=== PATIENT | male | born 1955 | race Two or more races ===

== ENCOUNTER 2020-04-15 06:43 | Day surgery (SDC) | payer MEDICAID, MEDICARE ==
--- NOTE | 2019-11-07 16:45 | Opthalmology H&P ---
Ophthalmology H&P H&P Chief Complaint: decreased vision in right eye HPI Vision Affects Ability to: read, manage personal affairs Past Ocular History: retinal problems - Vitreous hemorrhage OU/ Macular edema OU/ Proliferative Diabetic Retinopathy OU HPI Narrative Blurry vision Exam Visual Acuity: OD Hand motion OS Counting fingers Tension: OD 17 OS 17 Eye Exam: normal OU: external exam, palpebral fissure-width, marginal reflex distance, levator function, corneas, anterior chambers; findings: lens - NS cataracts OU, fundus exam - Vitreous hemorrhage OU/ Macular edema OU/ Proliferative Diabetic Retinopathy OU Assessment/Plan Treatment Plan: cataract extraction w/ lens implant Goals of Treatment: improvement of vision, enhance quality of life Attestation Attestation The risks and benefits of the surgery as well as alternative procedures were explained to the patient in detail. Jorge Peter MD Nov 07, 2019 16:45
--- NOTE | 2019-11-07 16:48 | Pre-Procedure Note/Attestation ---
Pre-Procedure Note/Attestation Complete Prior to Procedure Planned Procedure: right Procedure Narrative: Cataract extraction with IOL implant right eye Indications for Procedure Pre-Operative Diagnosis: Nuclear sclerotic/posterior subcapsular cataract right eye Attestation I attest that I discussed the nature of the procedure; its benefits; risks and complications; and alternatives (and the risks and benefits of such alternatives ), prior to the procedure, with the patient (or the patient's legal associate financial representative). I attest that, if there was a reasonable possibility of needing a blood transfusion, the patient (or the patient's legal associate financial representative) was given the [facility] standardized written summary, pursuant to the Santosh Nancie Blood Safety Act ([place] Health and Safety Code # 1645, as amended). I attest that I re-evaluated the patient just prior to the surgery and that there has been no change in the patient's H&P, except as documented below: Jorge Peter MD Nov 07, 2019 16:48
--- NOTE | 2020-04-14 13:07 | Opthalmology H&P ---
Ophthalmology H&P H&P Chief Complaint: decreased vision in right eye HPI Vision Affects Ability to: read, manage personal affairs Past Ocular History: retinal problems - pdr/me OU, Vitreous Hemorrhage OU HPI Narrative Blurry vision Exam Visual Acuity: OD: HM OS: 20/160 Tension: OD 21 OS 20 Eye Exam: normal OU: external exam, palpebral fissure-width, marginal reflex distance, levator function, corneas, anterior chambers; findings: lens - NS Cataracts OU, fundus exam - Vitreous Hemorrhage OU/ PDR OU/ME OU/ Assessment/Plan Treatment Plan: cataract extraction w/ lens implant Goals of Treatment: improvement of vision, enhance quality of life Attestation Attestation The risks and benefits of the surgery as well as alternative procedures were explained to the patient in detail. Jorge Peter MD Apr 14, 2020 13:07
--- NOTE | 2020-04-14 13:08 | Pre-Procedure Note/Attestation ---
Pre-Procedure Note/Attestation Complete Prior to Procedure Planned Procedure: right Procedure Narrative: Cataract extraction with IOL implant right eye Indications for Procedure Pre-Operative Diagnosis: Nuclear sclerotic/posterior subcapsular cataract right eye Attestation I attest that I discussed the nature of the procedure; its benefits; risks and complications; and alternatives (and the risks and benefits of such alternatives ), prior to the procedure, with the patient (or the patient's legal brewery representative). I attest that, if there was a reasonable possibility of needing a blood transfusion, the patient (or the patient's legal brewery representative) was given the [facility] standardized written summary, pursuant to the Santosh Nancie Blood Safety Act ([place] Health and Safety Code # 1645, as amended). I attest that I re-evaluated the patient just prior to the surgery and that there has been no change in the patient's H&P, except as documented below: Jorge Peter MD Apr 14, 2020 13:08
[2020-04-15] VITALS (7 sets, daily range): BP systolic 147–168; BP diastolic 73–88
[~2020-04-15] VITALS: Ht 182.9 cm; Wt 99.8 kg
[~2020-04-15 06:43] MED LIST: Akten 3.5% 1ml Btl RIGHT EYE ONE; Cyclopentolate 1% Opth Sol 2ml RIGHT EYE SCH; Diclofenac Sod 0.1% Op Soln RIGHT EYE SCH; Phenylephrine 10% Opth Soln 5ml RIGHT EYE SCH; Proparacaine 0.5% Opth Soln 15ml RIGHT EYE ONE; Tetracaine 0.5% Opth 4ml Soln RIGHT EYE ONE; Tobramycin Op Soln 0.3% 5ml RIGHT EYE SCH; Tropicamide 1% Opth 15ml Soln RIGHT EYE SCH
[2020-04-15] MEDS ORDERED: Maxitrol Opth Oint 3.5gm ONE (07:00)
[2020-04-15] MEDS ORDERED: prednisoLONE acetate 1% Opth Susp 1ml ONE (07:00)
[2020-04-15] MEDS ORDERED: Pilocarpine 1% Opth 15ml Soln ONE (07:00)
[2020-04-15] MEDS ORDERED: Tetracaine 0.5% Opth 4ml Soln RIGHT EYE ONE (07:00)
[2020-04-15] MEDS ORDERED: Proparacaine 0.5% Opth Soln 15ml RIGHT EYE ONE (07:00)
[2020-04-15] MEDS ORDERED: Akten 3.5% 1ml Btl RIGHT EYE ONE (07:00)
[2020-04-15] MEDS: Tropicamide 1% Opth 15ml Soln RIGHT EYE SCH ×3 (07:46→08:14)
[2020-04-15] MEDS: Phenylephrine 10% Opth Soln 5ml RIGHT EYE SCH ×3 (07:46→08:15)
[2020-04-15] MEDS: Cyclopentolate 1% Opth Sol 2ml RIGHT EYE SCH ×3 (07:46→08:15)
[2020-04-15] MEDS: Tobramycin Op Soln 0.3% 5ml RIGHT EYE SCH ×3 (07:47→08:15)
[2020-04-15] MEDS: Diclofenac Sod 0.1% Op Soln RIGHT EYE SCH ×3 (07:47→08:15)
[2020-04-15] MEDS ORDERED: CLOPIDOGREL75 MG ORAL (08:34)
[2020-04-15] MEDS ORDERED: AMLODIPINE BESY10 MG ORAL (08:34)
[2020-04-15] MEDS ORDERED: CARVEDILOL3.125 MG ORAL (08:35)
[2020-04-15] MEDS ORDERED: ASPIR 8181 MG ORAL (08:36)
[2020-04-15] MEDS ORDERED: CLONIDINE HCL0.1 MG PO (08:42)
[2020-04-15] MEDS ORDERED: LANTUS SOL100 UNIT/1 SUBQ (09:06)
[2020-04-15] MEDS ORDERED: Sodium Hyaluronate 10 mg/ml 0.85ml ONE (09:51)
[2020-04-15] MEDS ORDERED: BSS 500ml btl ONE (09:51)
[2020-04-15] MEDS ORDERED: EPINEPHrine 1mg/1ml Amp ONE (09:51)
[2020-04-15] MEDS ORDERED: BSS 15ml BTL ONE (09:51)
[2020-04-15] MEDS ORDERED: Povidone-Iodine 5% opth solution ONE (09:51)
[2020-04-15] MEDS ORDERED: acetaZOLAMIDE 500mg Inj ONE (09:52)
[2020-04-15] MEDS ORDERED: fentaNYL 100 mcg/2 mL IV ONE (09:59)
[2020-04-15] MEDS ORDERED: LR 1000ml ONE (10:00)
[2020-04-15] MEDS ORDERED: Sterile Water Irrig 1000ml IRRIG ONE (10:00)
[2020-04-15] MEDS ORDERED: NS Irrig 1000ml ONE (10:00)
[2020-04-15] MEDS ORDERED: Midazolam 2mg/2ml Inj ONE (10:00)
--- NOTE | 2020-04-15 10:53 | Immediate Post-Op Evaluation ---
Immediate Post-Op Evalulation Immediate Post-Op Evalulation Procedure: right eye cataract extraction with IOL Date of Evaluation: Apr 15, 2020 Time of Evaluation: 10:50 IV Fluids: 500 Blood Pressure Systolic: 138 Blood Pressure Diastolic: 50 Pulse Rate: 52 Respiratory Rate: 14 O2 Sat by Pulse Oximetry: 100 Temperature (Fahrenheit): 97.7 Nausea: No Vomiting: No Complications none Patient Status: awake, reacts, patent Hydration Status: adequate Drug: none Ijeoma Pérez CRNA Apr 15, 2020 10:53
--- NOTE | 2020-04-15 10:55 | Anethesia Preoperative Eval ---
Anesthesia Pre-op PMH/ROS General Date of Evaluation: Apr 15, 2020 Time of Evaluation: 10:00 Anesthesiologist: silva ASA Score: ASA 3 Mallampati Score Class I : Soft palate, uvula, fauces, pillars visible Class II: Soft palate, uvula, fauces visible Class III: Soft palate, base of uvula visible Class IV: Only hard plate visible Mallampati Classification: Class II Surgeon: vonda Diagnosis: cataract Surgical Procedure: cataract extractio with IOL Anesthesia History: none Family History: no anesthesia problems Allergies: Coded Allergies: No Known Allergies (Unverified , 11/07/19) Medications: see eMAR Patient NPO?: Yes NPO Date: Apr 15, 2020 NPO Time: 00:01 Past Medical History Cardiovascular: Reports: HTN, CAD Pulmonary: Denies: asthma, COPD, LUDA, other Gastrointestinal/Genitourinary: Denies: GERD, CRI, ESRD, other Neurologic/Psychiatric: Denies: dementia, CVA, depression/anxiety, TIA, other Endocrine: Reports: DM; Denies: hypothyroidism, steroids, other HEENT: Reports: cataract (R); Denies: cataract (L), glaucoma, PILOT STATION (L), PILOT STATION (R), other Hematology/Immune: Denies: anemia, DVT, bleeding disorder, other Musculoskeletal/Integumentary: Denies: OA, RA, DJD, DDD, edema, other PSxH Narrative: none Anesthesia Pre-op Phys. Exam Physician Exam Last Vital Signs Date Time Temp Pulse Resp B/P (MAP) Pulse Ox O2 Delivery O2 Flow Rate FiO2 04/15/20 08:11 97.3 50 18 162/77 97 Room Air Constitutional: NAD Neurologic: CN 2-12 intact Cardiovascular: RRR Respiratory: CTA Gastrointestinal: S/NT/ND Airway Exam Mallampati Classification 2 Mallampati Score: Class II MO: full ROM: full Dentures: no upper, no lower Anesthesia Pre-op A/P Labs Chemistry Test 04/15/20 08:25 POC Whole Blood Glucose 136 MG/DL (74-106) H Studies Pre-op Studies: EKG - sr Risk Assessment & Plan Assessment: covid neg Plan: mac Status Change Before Surgery: No Pre-Antibiotics Drug: none Ijeoma Pérez CRNA Apr 15, 2020 10:55
--- NOTE | 2020-04-15 11:04 | 48 Hour Post Anesthesia Eval ---
Post Anesthesia Evaluation Procedure: right eye cataract extraction with IOL Date of Evaluation: Apr 15, 2020 Time of Evaluation: 11:03 Blood Pressure Systolic: 151 0: 79 Pulse Rate: 50 Respiratory Rate: 14 O2 Sat by Pulse Oximetry: 98 Airway: patent Nausea: No Vomiting: No Hydration Status: adequate Cardiopulmonary Status: stable Mental Status/LOC: patient returned to baseline Post-Anesthesia Complications: none Follow-up care needed: N/A Ijeoma Pérez CRNA Apr 15, 2020 11:03
--- NOTE | 2020-04-18 11:05 | Brief Operative Note ---
Immediate Post Operative Note Operative Note Chief Complaint: Blurry vision Pre-op Diagnosis: Nuclear sclerotic/posterior subcapsular cataract right eye Procedure: Cataract extraction with IOL implant right eye Post-op Diagnosis: Pseudo OD Findings: consistent w/pre-op dx studies Surgeon: Jorge Peter MD Anesthesiologist: Ijeoma Pérez CRNA Anesthesia: MAC Specimen: none Complications: none Condition: stable Fluids: LR Estimated Blood Loss: none Drains: none Implant(s) used?: Yes - IOL-OD Jorge Peter MD Apr 18, 2020 11:05
--- NOTE | 2020-04-18 11:08 | Operative Note - PDOC ---
Operative Note Operative Note Date of Operation/Procedure: Apr 15, 2020 Chief Complaint: Blurry vision Pre-op Diagnosis: Nuclear sclerotic/posterior subcapsular cataract right eye Procedure: Cataract extraction with IOL implant right eye Post-op Diagnosis: Pseudo OD Operative Findings: consistent w/pre-op dx studies Surgeon: Jorge Peter MD Anesthesiologist: Ijeoma Pérez CRNA Anesthesia: MAC Specimen: none Complications: none Condition: stable Fluids: LR Estimated Blood Loss: none Drains: none Implant(s) used?: Yes - IOL-OD Indications for Procedure Nuclear sclerotic/ posterior subcapsular cataract right eye Description of Procedure This patient has been complaining visually significant cataract in the right eye with the best corrected visual acuity of hand motion. The patient complains of difficulties with glare in performing activities of daily living and wants to manage personal affairs with comfort and accuracy and see well enough to move with safety at home and outdoors. The risks, benefits and alternatives of the procedure were discussed with the patient in the office prior to scheduling surgery. All questions from the patient were answered after the surgical procedure was explained in detail. The risks of the procedure as explained to the patient include, but are not limited to, pain, infection, bleeding, loss of vision, retinal detachment, need for further surgery, loss of lens nucleus, double vision, etc. Alternative procedures were discussed which include, to do nothing or seek a second opinion. Informed consent for this procedure was obtained from the patient. The patient was referred to a primary care physician for a cardiopulmonary clearance prior to surgery, after proper evaluation was done patient was properly scheduled for outpatient surgery. The patient was brought to the operating room where the anesthesiologist established I.V. lines and cardiac monitoring leads. Mild intravenous sedation was administered. The patient was then prepared with a 5% solution of povidone -iodine to the conjunctival fornix and lashes, and a 5% solution of povidone- iodine to the lids and periorbital skin. The patient was then draped in the usual sterile fashion. A lid speculum was then placed in the operative eye. A keratome blade was then used to create a biplanar incision into the anterior chamber. Viscoelastics was then instilled into the anterior chamber. A curvilinear capsulorrhexis was then fashioned with an utrata forceps. A BSS was used with G-27 cannula was used to hydrodissect and hydrodelineate the lens nucleus. Paracentesis incision was made at 9 o'clock with sharp blade. The phacoemulsification unit, after being properly adjusted and tested, was then used to emulsify the nucleus. Residual cortical material was aspirated with the irrigation and aspiration unit. Healon was then instilled into the anterior chamber. The corneal wound was then enlarged to the size of the optic with the diann keratome blade. The intraocular lens was then inspected for right power and size and thought to be satisfactory. Then the lens was gently placed in the capsular bag. Positioning within the capsular bag was confirmed by direct visualization. Optic centration was accomplished with a Sinskey hook. Viscoelastics was removed from the anterior chamber using the irrigation and aspiration unit. The corneal wound was then tested for leaks and none were found. The lid speculum were then removed. Sponge and needle counts were correct. An eye patch and shield were placed over the operative eye. The patient was taken to the recovery room in stable condition. There were no complications. The patient tolerated the procedure well. The patient was then transferred to the ambulatory surgery unit in stable and satisfactory condition , was given detailed written instructions and asked to follow up in the office the next day. Jorge Peter MD Apr 18, 2020 11:08
== END 2020-04-15 12:00 | disposition home or self-care (01) ==
LOC: SUR 06:43
DX: H25.11 Age-related nuclear cataract, right eye (principal); H25.041 Posterior subcapsular polar age-related cataract, right eye; H43.11 Vitreous hemorrhage, right eye; I11.9 Hypertensive heart disease without heart failure; I25.10 Atherosclerotic heart disease of native coronary artery without angina pectoris; E11.9 Type 2 diabetes mellitus without complications
CPT/HCPCS: 66984; 82962; 94003; J0171; J1100; J2250; J3010; J3370; J7120; U0002; V2632; Z7512; 94150